=== PATIENT | female | born 1980 | race Caucasian/White ===

== ENCOUNTER 2023-02-11 13:11 | Emergency (ER) | payer MEDICAID, OTHER ==
[~2023-02-11] VITALS: Ht 165.1 cm; Wt 58.0 kg
[2023-02-11 13:15] VITALS: BP 127/88; RESP 20; TEMP 98.6; O2SAT 100
[2023-02-11 13:20] VITALS: PULSE 92
[2023-02-11] MEDS ORDERED: DEXT15SY3 PO (19:19)
== END 2023-02-11 20:40 | disposition home or self-care (01) ==
LOC: ER 13:11
DX: J06.9 Acute upper respiratory infection, unspecified (principal)
CPT/HCPCS: 71045; 99283